=== PATIENT | male | born 1975 | race Caucasian/White ===

== ENCOUNTER 2021-11-29 08:03 | Outpatient (CLI) | payer OTHER, SELFPAY ==
[2021-11-29 11:18] LABS: Albumin* 4.7 g/dL (3.3-5.0)
[2021-11-29 11:19] LABS: Chloride* 103 mmol/L (96-114); Potassium* 4.5 mmol/L (3.6-5.1); Sodium* 138 mmol/L (135-149)
[2021-11-29 11:21] LABS: Aspartate Amino Transferase* 54 U/L (12-35); Bilirubin Total* 1.1 mg/dL (0.1-1.5); Blood Urea Nitrogen* 30 mg/dL (5-24); Carbon Dioxide* 27 mmol/L (20-32); Cholesterol* 249 mg/dL (90-199); Estimated Glomerular Filt Rate 95 ml/min
[2021-11-29 11:22] LABS: Alanine Aminotransferase* 73 U/L (4-50); Alkaline Phosphatase* 82 U/L (40-150); Calcium* 9.6 mg/dL (8.4-10.6); Glucose* 89 mg/dL (60-115); HDL Cholesterol* 64 mg/dL (>=40); LDL Cholesterol Calculated 160 mg/dL (<100); Triglycerides* 125 mg/dL (40-149)
[2021-11-29 11:51] LABS: PSA Screen* 0.76 ng/mL (0.10-4.00)
== END 2021-11-29 08:04 | disposition home or self-care (01) ==
PROVIDERS: PCP Family Medicine; Visit Provider Family Medicine
DX: Z00.00 Encounter for general adult medical examination without abnormal findings (principal); E78.5 Hyperlipidemia, unspecified; Z12.5 Encounter for screening for malignant neoplasm of prostate
CPT/HCPCS: 80053; 80061; 84153

== ENCOUNTER 2022-01-04 11:50 | Outpatient (CLI) | payer OTHER, SELFPAY ==
--- NOTE | 2022-01-04 14:35 | W.ANESCHARGE ---
Anesthesia Charges Start Date/Time Anesthesia Start Date: 01/04/22 Anesthesia Start Time: 13:49 Stop Date/Time Anesthesia Stop Date: 01/04/22 Anesthesia Stop Time: 14:26 Summary Emergency: No
--- NOTE | 2022-01-04 14:55 | W.ANESCHARGE ---
Anesthesia Charges Start Date/Time Anesthesia Start Date: 01/04/22 Anesthesia Start Time: 13:49 Stop Date/Time Anesthesia Stop Date: 01/04/22 Anesthesia Stop Time: 14:26 Summary Emergency: No
== END 2022-01-04 11:51 | disposition home or self-care (01) ==
LOC: OP CLINIC 11:53
PROVIDERS: PCP Family Medicine; Visit Provider Surgery
DX: Z12.11 Encounter for screening for malignant neoplasm of colon (principal); Z86.010 Personal history of colon polyps; Z80.0 Family history of malignant neoplasm of digestive organs
CPT/HCPCS: 00812; 45378; J2704

== ENCOUNTER 2022-12-28 08:05 | Outpatient (CLI) | payer OTHER, SELFPAY | END 2022-12-28 08:06 | disposition home or self-care (01) | LOC: NFLDREF 12-31 13:25 | PROVIDERS: PCP Family Medicine; Referring Provider Family Medicine; Visit Provider Family Medicine | DX: E78.5 Hyperlipidemia, unspecified (principal) | CPT/HCPCS: 80053; 80061; 83695 ==

== ENCOUNTER 2023-05-08 10:16 | Outpatient (CLI) | payer OTHER, SELFPAY ==
--- OUTSIDE RECORDS SUMMARY | 2023-05-08 10:19 | XMS_ITS | Clinical Summary ---
Author Name Unknown Organization [facility] Address [place], [place] [address] Care Team Providers Care Coordinator Hotels Name Role Phone Kamlesh Jacobo MD Primary Care Provider [phone] Allergies No known active allergies Medications Medication Sig Dispensed Refills Start Date End Date Status simvastatin (ZOCOR) 5 mg tabletIndications:Hyp erlipemia TAKE 1 TABLET BY MOUTH EVERY NIGHT AT BEDTIME 90 tablet 1 01/27/2015 Active Active Problems Problem Noted Date Diagnosed Date Hyperlipemia 08/03/2014 Immunizations Name Administration Dates Next Due Tdap 12/07/2010 Family History Medical History Relation Name Comments Heart Disease Father Heart Disease Mother Relation Name Status Comments Father Alive Mother Alive Social History Tobacco Use Types Packs/Day Years Used Date Smoking Tobacco: Never Smokeless Tobacco: Never Alcohol Use Standard Drinks/Week Comments Yes 0 (1 standard drink = 0.6 oz pur e alcohol) Social Connections Answer Date Recorded Frequency of Communication with Friends and Fami ly Not on file 01/11/2023 Sex and Gender Information Value Date Recorded Sex Assigned at Not on file Gender Identity Not on file Sexual Orientation Not on file Obstetrics History Last Filed Vital Signs Vital Sign Reading Time Taken Comments Blood Pressure 116/64 08/03/2014 10:02 AM CDT Pulse 56 08/03/2014 10:02 AM CDT Temperature - - Respiratory Rate - - Oxygen Saturation - - Inhaled Oxygen Concentration - - Weight 70.6 kg (155 lb 9.6 oz) 08/03/2014 10:02 AM CDT Height 174.7 cm (5' 8.78) 08/03/2014 10:02 AM C DT Body Mass Index 23.13 08/03/2014 10:02 AM CDT Plan of Treatment Health Maintenance Due Date Last Done Comments Depression screening for age 12+ 1988 HIV for age 15-65 09/15/1991 BMI (ht and wt on same day) for age 18+ 1994 Hepatitis C screening for age 18-79 1994 Tetanus booster 12/07/2020 12/07/2010 Colonoscopy through age 75 2021 Lipids for age 45-75 2021 07/06/2014, 07/06/2014, 07/06/2014 COVID-19 vaccine series (2022-24 season) 2022 02/14/2022, 10/27/2021, 01/11/2021, Additional history exists Influenza for age 9-49 12/07/2022 Tdap Completed 12/07/2010 Pneumococcal series for age 6-64 Aged Out No longer eligible based on patient's age to complete this topic Care Teams Coordinator Hotels Relationship Specialty Start Date End Date Kamlesh Jacobo MD [address] [place] [address] PCP - General Family Practice 01/09/23
== END 2023-05-08 10:17 | disposition home or self-care (01) ==
LOC: NFLDREF 10:16
PROVIDERS: PCP Family Medicine; Visit Provider Family Medicine
DX: R30.0 Dysuria (principal); N39.0 Urinary tract infection, site not specified
CPT/HCPCS: 87086

== ENCOUNTER 2023-12-04 17:03 | Outpatient (CLI) | payer OTHER, SELFPAY ==
--- OUTSIDE RECORDS SUMMARY | 2023-12-04 17:05 | XMS_ITS | Clinical Summary ---
Author Organization [facility] Address [address] [address] Phone Care Team Providers Care Crosscutter Rolled Glass Name Role Phone Choice, No Pcp-Patient Primary Care Provider Susie vailable Allergies No known active allergies Medications Medication Sig Dispensed Refills Start Date End Date Status rosuvastatin (Crestor) 40 MG tablet 05/03/2023 Active ibuprofen (Motrin) 600 MG tablet Take 1 Tablet by mouth every four hours as needed for Pain. Administer with food. 06/22/2023 Active acetaminophen (TYLENOL) 325 MG tablet Take 2 Tablets by mouth every six hours as needed for Pain or Fever. Limit acetaminophen to 4000 mg per day from all sources. 06/22/2023 Active oxyCODONE (Roxicodone) 5 MG immediate release tablet Take 1 Tablet by mouth every six hours as needed for Pain. 10 Tablet 06/22/2023 Active Active Problems Problem Noted Date Diagnosed Date Acute pyelonephritis 06/20/2023 Social History Tobacco Use Types Packs/Day Years Used Date Smoking Tobacco: Never Smokeless Tobacco: Never Tobacco Cessation:Counseling Given: Not Answered Alcohol Use Standard Drinks/Week Comments Not Currently 0 (1 standard drink = 0.6 oz pur e alcohol) Hunger Vital Sign Answer Date Recorded Within the past 12 months, y ou worried that your food would run out before you got the money to buy more. Patient declined Within the past 12 months, t he food you bought just didn't last and you didn't have money to get more. Patient declined PRAPARE - Transportation Answer Date Re corded In the past 12 months, has l ack of transportation kept you from medical appointments or from getting medications? Patient declined 06/20/2023 In the past 12 months, has l ack of transportation kept you from meetings, work, or from getting things needed for daily living? Patient declined 06/20/2023 EH IP Custom Utilities Answer Date Hugo rded Retired - How hard is it for you to pay for utilities like heat, water, and electricity? Patient declined 06/20/2023 EH IP Housing Domain Answer Date Record ed Retired - What is your living situation today? P atient refused 06/20/2023 EH IP Custom IPV Answer Date Recorded Do you feel UNSAFE in any of your personal relationships with your family members or any other acquaintances? No 2023 Sex and Gender Information Value Date Recorded Sex Assigned at Not on file Gender Identity Not on file Sexual Orientation Not on file Obstetrics History Last Filed Vital Signs Vital Sign Reading Time Taken Comments Blood Pressure 109/71 06/22/2023 8:04 AM CDT Pulse 58 06/22/2023 8:04 AM CDT Temperature 36.6 ??C (97.9 ??F) 06/22/2023 12:47 PM C DT Respiratory Rate 16 06/22/2023 8:04 AM CDT Oxygen Saturation 97% 06/22/2023 8:04 AM CDT Inhaled Oxygen Concentration - - Weight 73.8 kg (162 lb 9.6 oz) 06/20/2023 7:50 P M CDT Height 172.7 cm (5' 8) 06/20/2023 7:50 PM CDT Body Mass Index 24.72 06/20/2023 7:50 PM CDT Plan of Treatment Health Maintenance Due Date Last Done Comments CT Colonography 1976 Cologuard 1976 Colonoscopy 1976 Colorectal Cancer Screening 1976 FIT/FOBT 1976 Sigmoidoscopy 1976 Hepatitis B Vaccine (Standin g Order) (1 of 3 - 19+ 3-dose series) 09/15/1995 PERTUSSIS (Standing Order) 09/15/1995 TETANUS (Standing Order) 09/15/1995 Influenza Vaccine Seasonal (Standing Order) (#1) 2023 HPV Vaccine (Standing Order) Aged Out No longer eligible based on patient's age to complete this topic Pneumococcal/PCV20 Vaccine: Pediatrics (2-5 yrs) and At-Risk Patients (6-64 yrs) (Standing Order) Aged Out No longer eligible b ased on patient's age to complete this topic Advance Directives For more information, please contact: [phone] * Full Code (Latest Code Status on File) Date Activated Date Inactivated Comments 06/20/2023 8:27 PM 06/22/2023 6:44 PM Care Teams Crosscutter Rolled Glass Relationship Specialty Start Date End Date Choice, No Pcp-Patient PCP - General 06/20/23
--- OUTSIDE RECORDS SUMMARY | 2023-12-04 17:05 | XMS_ITS | Clinical Summary ---
Author Organization [facility] Address [place], [place] [address] Care Team Providers Care Team Sports Sales Associate Name Role Phone Kamlesh Jacobo MD Primary Care Provider [phone] Allergies No known active allergies Medications Medication [...] Additional history exists Influenza for age 9-49 12/08/2023 Tdap Completed 12/07/2010 Pneumococcal series for age 6-64 Aged Out No longer eligible based on patient's age to complete this topic Procedures Procedure Name Priority Date/Time Associated Diagnosis Comments CHOLESTEROL,TOTAL Routine 07/06/2014 10: 50 AM CDT Hyperlipemia from Last 3 Months or Most Recently Relevant to Health Maintenance Results * CHOLESTEROL,TOTAL (07/06/2014 10:50 AM CDT) CHOLESTEROL TOTAL 269 MG/DL [facility] Blood specimen (specimen) BLOOD SPECIMEN / Unknown 07/06/2014 10:50 AM CDT Jeane Hoover DO CHEMISTRY [facility] [address] [place] [address] from Last 3 Months or Most Recently Relevant to Health Maintenance Care Teams Team Sports Sales Associate Relationship Specialty Start Date End Date Kamlesh Jacobo MD [address] [place] [address] PCP - General Family Practice 01/09/23
== END 2023-12-04 17:04 | disposition home or self-care (01) ==
LOC: NFLDUCREF 17:04
PROVIDERS: PCP Family Medicine; Visit Provider Nurse Practitioner Family
DX: R35.0 Frequency of micturition (principal)
CPT/HCPCS: 87086

== ENCOUNTER 2024-01-02 09:14 | Outpatient (CLI) | payer OTHER, SELFPAY ==
--- OUTSIDE RECORDS SUMMARY | 2024-01-02 09:17 | XMS_ITS | Clinical Summary ---
Author Organization [facility] Address [place], [place] [address] Care Team Providers Care Curtain Inspector Name Role Phone Kamlesh Jacobo MD Primary Care Provider [phone] Allergies No known active allergies Medications Medication [...] 07/06/2014, 07/06/2014 COVID-19 vaccine series (2022-24 season) 2023 02/14/2022, 10/27/2021, 01/11/2021, Additional history exists Influenza [...] 10:50 AM CDT) CHOLESTEROL TOTAL 269 MG/DL [facility] Blood specimen (specimen) BLOOD SPECIMEN / Unknown 07/06/2014 10:50 AM CDT Jeane Hoover DO CHEMISTRY [facility] [address] [place] [address] from Last 3 Months or Most Recently Relevant to Health Maintenance Care Teams Curtain Inspector Relationship Specialty Start Date End Date Kamlesh Jacobo MD [address] [place] [address] PCP - General Family Practice 01/09/23
--- OUTSIDE RECORDS SUMMARY | 2024-01-02 09:17 | XMS_ITS | Clinical Summary ---
Author Organization [facility] [employer] [employer] [facility] Address [address] [address] Phone Care Team Providers Care Waybill Clerk Name Role Phone Choice, No Pcp-Patient Primary [...] (Standing Order) 09/15/1995 TETANUS (Standing Order) 09/15/1995 COVID-19 Vaccine (2022-2 4 season) 2023 Influenza Vaccine Seasonal (Standing Order) (#1) 2023 HPV Vaccine (Standing Order) Aged Out No longer eligible based on patient's age to complete this topic Pneumococcal/PCV20 Vaccine: Pediatrics (2-5 yrs) and At-Risk Patients (6-64 yrs) (Standing Order) Aged Out No longer eligible b ased on patient's age to complete this topic Advance Directives For more information, please contact: [phone] * Full Code (Latest Code Status on File) Date Activated Date Inactivated Comments 06/20/2023 8:27 PM 06/22/2023 6:44 PM Care Teams Waybill Clerk Relationship Specialty Start Date End Date Choice, No Pcp-Patient PCP - General 06/20/23
== END 2024-01-02 09:15 | disposition home or self-care (01) ==
LOC: NFLDREF 09:15
PROVIDERS: PCP Family Medicine; Visit Provider Family Medicine
DX: Z00.00 Encounter for general adult medical examination without abnormal findings (principal); E78.5 Hyperlipidemia, unspecified; Z12.5 Encounter for screening for malignant neoplasm of prostate
CPT/HCPCS: 80053; 80061; 83695; G0103

== ENCOUNTER 2025-01-01 07:49 | Outpatient (CLI) | payer BC, SELFPAY | END 2025-01-01 07:50 | disposition home or self-care (01) | PROVIDERS: Family Medicine; PCP Family Medicine; Referring Provider Family Medicine; Visit Provider Family Medicine | DX: Z12.5 Encounter for screening for malignant neoplasm of prostate (principal) | CPT/HCPCS: 80053; 80061; 83695; G0103 ==